=== PATIENT | male | born 1970 | race Caucasian/White ===

== ENCOUNTER 2019-12-21 12:25 | Emergency (ER) | payer OTHER ==
[~2019-12-21] VITALS: Ht 177.8 cm; Wt 77.8 kg
[2019-12-21] MEDS ORDERED: ONDANSETRON PF 4 MG/2 ML VIAL. IVP ONE (12:45)
[2019-12-21] MEDS ORDERED: IV NORMAL SALINE 1,000ML 1,000 ML IV ONE (12:45)
[2019-12-21] MEDS ORDERED: diphenhydrAMINE 50 MG/ML VIAL IVP ONE (12:45)
--- NOTE | 2019-12-21 13:16 | PHYS DOC ---
General Adult EDM: Chief Complaint: DIZZY/LIGHT HEADED HPI: HPI: 49-year-old male presents with vertigo. Patient was diagnosed with benign positional vertigo couple of years ago. He has had 1 previous severe exacerbation that improved with physical therapy. He presents today because he had a sudden onset of vertigo yesterday at 6 AM when he woke up. He went to his primary care physician who gave him meclizine, prochlorperazine and a steroid. He was feeling a bit better so he went home. He presents today because his symptoms have gotten worse again. He has taken his oral medications without relief. Review of Systems: Review of Systems: Constitutional: Denies fever or chills Eyes: Denies change in visual acuity HENT: Denies nasal congestion or sore throat Respiratory: Denies cough or shortness of breath Cardiovascular: Denies chest pain or edema GI: Denies abdominal pain, nausea, vomiting, bloody stools or diarrhea : Denies dysuria Musculoskeletal: Denies back pain or joint pain Integument: Denies rash Neurologic: Dizziness. Denies headache, focal weakness or sensory changes Endocrine: Denies polyuria or polydipsia Lymphatic: Denies swollen glands Psychiatric: Denies depression or anxiety Heart Score: Risk Factors: Risk Factors: DM, Current or recent (<one month) smoker, HTN, HLP, family history of CAD, obesity. Risk Scores: Score 0 - 3: 2.5% MACE over next 6 weeks - Discharge Home Score 4 - 6: 20.3% MACE over next 6 weeks - Admit for Clinical Observation Score 7 - 10: 72.7% MACE over next 6 weeks - Early Invasive Strategies Current Medications: Current Meds: Current Medications Medications (Trade) Dose Ordered Sig/Mary Start Time Stop Time Status Last Admin Dose Admin Diphenhydramine HCl (Benadryl) 25 mg 1X ONCE 12/21/19 12:45 12/21/19 12:46 DC 12/21/19 12:58 25 MG Lorazepam (Ativan Inj) 2 mg 1X ONCE 12/21/19 12:45 12/21/19 12:46 DC 12/21/19 12:59 2 MG Ondansetron HCl (Zofran) 4 mg 1X ONCE 12/21/19 12:45 12/21/19 12:46 DC 4/11/20 12:57 4 MG Sodium Chloride 1,000 ml @ 1,000 mls/hr 1X ONCE 12/21/19 12:45 12/21/19 13:44 12/21/19 12:54 1,000 MLS/HR Allergies: Allergies: Allergies Coded Allergies Type Severity Reaction Last Updated Verified No Known Drug Allergies 12/21/19 No Physical Exam: PE: Constitutional: Well developed, well nourished, no acute distress, non-toxic appearance. [] HENT: Normocephalic, atraumatic, bilateral external ears normal, oropharynx moist, no oral exudates, nose normal. [] Eyes: PERRLA, EOMI, conjunctiva normal, no discharge. [] Neck: Normal range of motion, no tenderness, supple, no stridor. [] Cardiovascular: Heart rate regular rhythm, no murmur [] Lungs & Thorax: Bilateral breath sounds clear to auscultation [] Abdomen: Bowel sounds normal, soft, no tenderness, no masses, no pulsatile masses. [] Skin: Warm, dry, no erythema, no rash. [] Back: No tenderness, no CVA tenderness. [] Extremities: No tenderness, no cyanosis, no clubbing, ROM intact, no edema. [] Neurologic: Alert and oriented X 3, normal motor function, normal sensory function, no focal deficits noted. [] Psychologic: Affect normal, judgement normal, mood normal. [] EKG: EKG: [] Radiology/Procedures: Radiology/Procedures: [] Course & Med Decision Making: Course & Med Decision Making Pertinent Labs and Imaging studies reviewed. (See chart for details) Since the patient is already tried basic medications, we will start with 1 L normal saline, 25 mg of Benadryl, 4 mg of Zofran, and 2 mg of Ativan IV. The patient's symptoms were slightly improved, but not resolved. I performed the Jordan-Hallpike maneuver and the patient had some nystagmus with the left. We then went through the modified Gil's maneuver for the left side. The patient did not have significant nystagmus or dizziness with this maneuver. I explained to him that he can do these at home multiple times a day and this may help him improve more quickly. He will continue take the medications already prescribed. He will follow-up with his primary physician and possibly physical therapy on Monday if his symptoms have not resolved. He is stable for discharge at this time. [] Dragon Disclaimer: Dragon Disclaimer: This electronic medical record was generated, in whole or in part, using a voice recognition dictation system. Departure Departure: Impression: Primary Impression: Benign positional vertigo Qualified Codes: H81.12 - Benign paroxysmal vertigo, left ear Disposition: HOME, SELF-CARE Condition: STABLE Referrals: IRMA AGUILAR MD (PCP) Patient Instructions: Benign Positional Vertigo SHANI SHERWOOD DO Dec 21, 2019 13:16
[2019-12-21 13:17] LABS: BASO # 0.1 x10^3/uL (0.0-0.2); BASO % 1 % (0-3); EOS % 1 % (0-3); HEMATOCRIT 44.9 % (39.0-53.0); HEMOGLOBIN 15.6 g/dL (13.0-17.5); LYMPH # 2.1 x10^3/uL (1.0-4.8); LYMPH % 24 % (24-48); MEAN CORPUSCULAR HEMOGLOBIN 30 pg (25-35); MEAN CORPUSCULAR HGB CONC 35 g/dL (31-37); MEAN CORPUSCULAR VOLUME 87 fL (79-100); MONO # 0.5 x10^3/uL (0.0-1.1); MONO % 6 % (0-9); NEUT # 6.1 x10^3uL (1.8-7.7); NEUT % 69 % (31-73); PLATELET COUNT 219 x10^3/uL (140-400); RED BLOOD COUNT 5.16 x10^6/uL (4.30-5.70); RED CELL DISTRIBUTION WIDTH 13.2 % (11.5-14.5); WHITE BLOOD COUNT 8.9 x10^3/uL (4.0-11.0)
[2019-12-21 13:18] LABS: CALCIUM 8.7 mg/dL (8.5-10.1); CREATININE 1.2 mg/dL (0.7-1.3); GFR 64.6; POTASSIUM 3.5 mmol/L (3.5-5.1)
[2019-12-21 13:24] LABS: ALBUMIN 3.8 g/dL (3.4-5.0); ALBUMIN/GLOBULIN RATIO 1.3 (1.0-1.7); TOTAL BILIRUBIN 0.6 mg/dL (0.2-1.0); TOTAL PROTEIN 6.8 g/dL (6.4-8.2)
[2019-12-21 14:33] VITALS: BP 121/66
[2019-12-21] MEDS ORDERED: ONDA4TAB12 PO (14:39)
== END 2019-12-21 14:40 | disposition home or self-care (01) ==
LOC: ER 12:25
DX: H81.12 Benign paroxysmal vertigo, left ear (principal); R42 Dizziness and giddiness
CPT/HCPCS: 36415; 80053; 85025; 96361; 96374; 96375; 99285; J1200; J2060; J2405; J7030